=== PATIENT | male | born 1990 | race African-American/Black ===

== ENCOUNTER 2017-11-12 16:20 | Emergency (ER) | payer SELFPAY ==
[~2017-11-12] VITALS: Ht 175.3 cm; Wt 140.0 kg
[2017-11-12 16:28] VITALS: BP 159/90
== END 2017-11-12 23:05 | disposition left against medical advice (07) ==
LOC: ER 17:22
DX: R07.89 Other chest pain (principal); V43.62XA Car passenger injured in collision with other type car in traffic accident, initial encounter; Y93.89 Activity, other specified; Y92.488 Other paved roadways as the place of occurrence of the external cause
CPT/HCPCS: 99281